=== PATIENT | male | born 1955 | race Caucasian/White ===

== ENCOUNTER 2022-04-11 16:04 | Emergency (ER) | payer MEDICARE, MEDICAID, SELFPAY ==
--- NOTE | ~2022-04-11 | XR_ITS ---
EXAMINATION: XR ANKLE, LEFT CLINICAL INFORMATION: Injury. COMPARISON: None TECHNIQUE: AP, lateral, and mortise views of the left ankle. FINDINGS: Nondisplaced somewhat obliquely oriented fracture along the medial malleolus. Additional more vertically oriented nondisplaced fracture of the distal fibula, lateral malleolus. The ankle mortise is maintained, although suboptimally assessed in the absence of stress views. Soft tissue thickening around the ankle. No unexpected radiopaque foreign bodies. XR/XR ankle LT min 3V IMPRESSION: Bimalleolar left ankle fracture. If clinically deemed appropriate, recommend further evaluation with a stress ankle mortise views.
[2022-04-11 16:26] VITALS: BP 150/86; PULSE 76; O2SAT 95
[2022-04-11 16:27] VITALS: BP 130/89; PULSE 80; RESP 16; BMI 19.9
[2022-04-11 16:39] VITALS: BP 130/89; BP 150/86; PULSE 76; PULSE 80; RESP 16; TEMP 36.1; O2SAT 100; O2SAT 95; BMI 19.2
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
[2022-04-11] MEDS: Acetaminophen 325 MG TABLET 975 MG PO (18:24)
[2022-04-11] MEDS: Diphth,Pertus(ACell),Tet Adult 0.5 ML SYRINGE IM (18:25)
[2022-04-11] MEDS: Ibuprofen 600 MG TABLET PO (18:27)
== END 2022-04-11 20:25 | disposition home or self-care (01) ==
PROVIDERS: Emergency Provider Emergency Medicine
DX: S82.55XA Nondisplaced fracture of medial malleolus of left tibia, initial encounter for closed fracture (principal); S82.65XA Nondisplaced fracture of lateral malleolus of left fibula, initial encounter for closed fracture; V47.6XXA Car passenger injured in collision with fixed or stationary object in traffic accident, initial encounter; Y93.89 Activity, other specified; Y92.414 Local residential or business street as the place of occurrence of the external cause; Y99.9 Unspecified external cause status
CPT/HCPCS: 29515; 73610; 90471; 90715; 99283; 99284